=== PATIENT | male | born 1950 | race Caucasian/White ===

== ENCOUNTER 2023-04-25 07:57 | Outpatient (CLI) | payer MEDICARE, SELFPAY ==
--- NOTE | ~2023-04-25 | CT_ITS ---
Noncontrast CT scan of the lumbar spine CLINICAL HISTORY: Spondylosis TECHNIQUE: Axial noncontrast imaging of the lumbar spine was performed. Sagittal and coronal reformat noe images were constructed. Dose reduction technique was used on this scan by utilizing automated ex posure control and iterative reconstruction technique. The dose-length product (DLP) was 784.17 mGy-c m. FINDINGS: There is 21 degree levoscoliosis of the lumbar spine. There is 7 mm retrolisthesis of L5 ov er S1. No acute fracture evident. At L1-L2, there is minimal disc bulge and mild facet arthropathy. No central canal stenosis or defini te neural foraminal narrowing. At L2-L3, there is mild disc bulge and moderate facet arthropathy. Possible mild central canal stenos is. There is moderate to severe right neural foraminal narrowing. Left neural foramen preserved. At L3-L4, there is moderate degenerative disc narrowing. There is disc bulge and facet arthropathy, w ith probable mild central canal stenosis. There is moderate to advanced left neural foraminal narrowi ng, and severe right neural foraminal narrowing. At L4-L5, there is disc bulge and facet arthropathy, with moderate to severe central canal stenosis/t hecal sac compression. There is severe bilateral neural foraminal narrowing, left worse than right. At L5-S1, there is minimal disc bulge. No central canal stenosis. There is moderate to advanced bilat eral neural foraminal narrowing. Paravertebral soft tissues are unremarkable. Impression: Severe degenerative spondylosis, as detailed above. 7 mm retrolisthesis of L5 over S1. Levoscoliosis, as detailed above. Reviewed, dictated and finalized at location M. Impression: Severe degenerative spondylosis, as detailed above. 7 mm retrolisthesis of L5 over S1. Levoscoliosis, as detailed above.
== END 2023-04-25 07:58 | disposition home or self-care (01) ==
PROVIDERS: Visit Provider Orthopaedic Surgery
DX: M47.26 Other spondylosis with radiculopathy, lumbar region (principal); Z96.641 Presence of right artificial hip joint
CPT/HCPCS: 72131